=== PATIENT | male | born 2000 | race African-American/Black ===

== ENCOUNTER 2020-09-17 15:16 | Emergency (ER) | payer MEDICAID, SELFPAY ==
[2020-09-17 15:30] VITALS: BP 116/78; PULSE 80; RESP 18; TEMP 36.7; O2SAT 99; BMI 19.1
--- NOTE | 2020-09-17 15:40 | HMH.EDUTC ---
[facility] [place] Clinical Impression: Exposure to COVID-19 virus, Exposure to STD Disposition: Home, Self-Care Condition on Discharge: Good Instructions: Preventing the Spread of Coronavirus Discharge Instructions Additional Instructions: Drink plenty of fluids. Take tylenol for pain or fever. Follow up with your regular doctor. GO TO THE ER FOR ANY WORSENING SYMPTOMS Referrals: PCP,No [Primary Care Provider] - Time of Disposition: 15:49 Medical Decision Making - Medical Records Medical records reviewed: No: I reviewed the patient's medical records. - Abiodun Inquiry Pt receiving controlled substance: No Vital Signs: 09/17/20 15:30 09/17/20 15:54 Temperature 98.1 F 98.1 F Temperature Source Oral Oral Pulse Rate 80 Pulse Rate [Radial] 80 Respiratory Rate 18 18 Blood Pressure 116/78 Blood Pressure [Right Arm] 116/78 Blood Pressure Mean [Right Arm] 90 Blood Pressure Source Automatic Cuff Blood Pressure Source [Right Arm] Automatic Cuff Blood Pressure Position Sitting Blood Pressure Position [Right Arm] Sitting 02 Sat by Pulse Oximetry 99 Oxygen Delivery Method Room Air Room Air [facility] [place] - General Stated complaint: request covid test and STD test Time Seen by Provider: 09/17/20 15:40 Mode of Arrival: Ambulatory Source of Information: Patient Limitations: No Limitations Description of Symptoms (Recalled from Triage Doc. by RN): WANTS COVID TEST AND STD TESTING. HEENT Symptoms (Recalled from RN notes): No Resp Symptoms (Recalled from RN notes): No Skin Symptoms (Recalled from RN notes): No MS Symptoms (Recalled from RN notes): No Functional Status (Recalled from RN notes): WNL - History of Present Illness Provider Complaint: He thinks that he was exposed to covid thru a friend. He denies any symptoms at this time. His exposure would have happened about 3 to 4 days ago. He is also concerned about having and stds. He denies any symptoms of these also. - Related Data Previous Rx's Medication Instructions Recorded Oseltamivir Phosphate [Tamiflu 75 mg PO BID #10 cap 11/17/19 75mg Capsule] Allergies Allergy/AdvReac Type Severity Reaction Status Date / Time No Known Allergies Allergy Verified 12/25/18 12:39 - Worker's Comp Is this a Worker's Comp case?: No [facility] History - Hepatitis A Screen Drug use history?: No High risk sexual behaviors?: No History of sexually transmitted infection?: No Currently employed?: No Childcare worker?: No Do you have indoor plumbing?: Yes Do you have electricity?: Yes Attestation statement:: This patient has been screened for Hepatitis A risk factors. I have reviewed the patient's past medical history: Yes Medical History: Denies:: Diabetes Mellitus Type 1, Diabetes Mellitus Type 2 - Social History Alcohol Intake: never Occupational Status: other ROS Obtained: Yes All systems reviewed & no additional complaints - Constitutional Constitutional: Denies chills, Denies fever(s) - Eyes Eyes: Reports system reviewed and no additional complaints, except as docu - ENT Ears, Nose, Mouth, and Throat: Reports system reviewed and no additional complaints, except as docu - Cardiovascular Cardiovascular: Reports system reviewed and no additional complaints, except as docu - Respiratory Respiratory: Yes system reviewed and no additional complaints, except as docu Physical Exam - General General appearance: alert, in no apparent distress - Head Head exam: atraumatic, normocephalic, normal inspection - Eye Eye exam: Present: normal appearance, PERRL, EOMI - ENT ENT exam: Present: normal exam, normal oropharynx, mucous membranes moist, TM's normal bilaterally, normal external ear exam - Neck Neck exam: Present: normal inspection, full ROM, trachea midline. Absent: meningismus, lymphadenopathy - Chest Chest inspection: Present: normal inspection, symmetric chest wall rise. Absent: tenderness - Respira
[2020-09-17 15:54] VITALS: BP 116/78; PULSE 80; RESP 18; TEMP 36.7; O2SAT 99
[2020-09-21 08:40] LABS: Neisseria gonorrhoeae, NAA Negative (Negative)
== END 2020-09-17 15:56 | disposition home or self-care (01) ==
PROVIDERS: Emergency Provider Nurse Practitioner Family
DX: Z20.828 Contact with and (suspected) exposure to other viral communicable diseases (principal); Z20.2 Contact with and (suspected) exposure to infections with a predominantly sexual mode of transmission
CPT/HCPCS: 87491; 87591; 99202; U0003

== ENCOUNTER 2022-03-06 12:21 | Emergency (ER) | payer MEDICAID, SELFPAY ==
[2022-03-06 13:25] VITALS: BP 109/63; PULSE 71; RESP 16; TEMP 36.6; O2SAT 100; BMI 18.4
[2022-03-06 13:31] LABS: UTC Influenza A Antigen Positive (Negative)
[2022-03-06 13:32] LABS: UTC Influenza B Antigen Negative (Negative)
--- NOTE | 2022-03-06 13:51 | HMH.EDUTC ---
[facility] [place]ression: Influenza A Disposition: Home, Self-Care Condition on Discharge: Good Instructions: Influenza, DI for Influenza -- Adult Additional Instructions: Drink plenty of fluids. Take tylenol or ibuprofen for pain or fever. Take the medications as directed. Follow up with your regular doctor. GO TO THE ER FOR ANY WORSENING SYMPTOMS Prescriptions: Ondansetron [Zofran 4mg ODT] 4 mg PO Q8HP PRN #12 tab PRN Reason: Nausea Transmission Status: Received by [id number] Oseltamivir Phosphate [Tamiflu 75mg Capsule] 75 mg PO BID #10 cap Transmission Status: Received by [id number] Referrals: Provider,Referral, MD [Primary Care Provider] - Forms: Work/School Release Time of Disposition: 13:56 Medical Decision Making - Medical Records Medical records reviewed: No: I reviewed the patient's medical records. - Abiodun Inquiry Pt receiving controlled substance: No Vital Signs: 03/06/22 13:25 03/06/22 14:05 Temperature 97.8 F 97.8 F Temperature Source Oral Pulse Rate 71 Pulse Rate [Left] 71 Respiratory Rate 16 16 Blood Pressure 109/63 L Blood Pressure [Right Arm] 109/63 L Blood Pressure Mean [Right Arm] 78 02 Sat by Pulse Oximetry 100 - Lab Data Lab results reviewed: Yes: I reviewed the patient's lab results. Lab Results 03/06/22 13:13: Influenza Type A Ag Positive A, Influenza Type B Ag Negative [facility] [place] - General Stated complaint: bodyaches, SOA, chills, FOX Time Seen by Provider: 03/06/22 13:52 Mode of Arrival: Ambulatory Source of Information: Patient Limitations: No Limitations Description of Symptoms (Recalled from Triage Doc. by RN): pt c/o a FOX, fever, body aches and nasal drainage x2 days. HEENT Symptoms (Recalled from RN notes): Yes Resp Symptoms (Recalled from RN notes): No Skin Symptoms (Recalled from RN notes): No MS Symptoms (Recalled from RN notes): No Functional Status (Recalled from RN notes): wnl - History of Present Illness Provider Complaint: He c/o 2 days of body aches, chills, low grade fever, - Related Data Previous Rx's Medication Instructions Recorded Oseltamivir Phosphate [Tamiflu 75 mg PO BID #10 cap 11/17/19 75mg Capsule] Ondansetron [Zofran 4mg ODT] 4 mg PO Q8HP PRN #12 tab 03/06/22 Oseltamivir Phosphate [Tamiflu 75 mg PO BID #10 cap 03/06/22 75mg Capsule] Allergies Allergy/AdvReac Type Severity Reaction Status Date / Time No Known Allergies Allergy Verified 12/25/18 12:39 - Worker's Comp Is this a Worker's Comp case?: No [facility] History - Hepatitis A Screen Drug use history?: No High risk sexual behaviors?: No History of sexually transmitted infection?: No Currently employed?: No Childcare worker?: No Do you have indoor plumbing?: Yes Do you have electricity?: Yes Attestation statement:: This patient has been screened for Hepatitis A risk factors. I have reviewed the patient's past medical history: Yes Medical History: Denies:: Diabetes Mellitus Type 1, Diabetes Mellitus Type 2 - Social History Alcohol Intake: never Occupational Status: other ROS Obtained: Yes All systems reviewed & no additional complaints - Constitutional Constitutional: Reports as per HPI - Eyes Eyes: Denies eye discharge - ENT Ears, Nose, Mouth, and Throat: Reports as per HPI - Cardiovascular Cardiovascular: Denies chest pain - Respiratory Respiratory: Denies chest congestion, Reports cough, Denies dyspnea, Denies stridor, Denies wheezing - Gastrointestinal Gastrointestingal: Reports: nausea. Denies: abdominal pain, diarrhea, vomiting - Musculoskeletal Musculoskeletal: Denies joint pain - Integumentary/Breasts Skin/Breast: Denies rash Physical Exam - General General appearance: alert, in no apparent distress - Head Head exam: atraumatic, normocephalic, normal inspection - Eye Eye exam: Present: normal appearance, PERRL, EOMI - ENT
[2022-03-06 14:05] VITALS: BP 109/63; PULSE 71; RESP 16; TEMP 36.6
== END 2022-03-06 14:09 | disposition home or self-care (01) ==
LOC: ER 12:29 → UTC 12:30
PROVIDERS: Emergency Provider Nurse Practitioner Family
DX: J10.1 Influenza due to other identified influenza virus with other respiratory manifestations (principal)
CPT/HCPCS: 87804; 99213; G0463

== ENCOUNTER 2022-08-16 09:00 | Emergency (ER) | payer MEDICAID, SELFPAY ==
[2022-08-16 09:01] VITALS: BP 124/75; PULSE 84; RESP 16; TEMP 36.7; O2SAT 100; BMI 19.1
--- NOTE | 2022-08-16 09:46 | HMH.EDEYEP ---
Discharge Plan Disposition Patient Disposition: Home, Self-Care Condition: Good Prescriptions Prescriptions: New erythromycin 5 mg/gram (0.5 %) ointment 1 applic ophthalmic (eye) QID 5 Days Qty: 3.5 0RF No Action oseltamivir 75 MG capsule 75 mg PO BID Qty: 10 0RF oseltamivir 75 MG capsule 75 mg PO BID Qty: 10 0RF ondansetron 4 MG tablet,disintegrating 4 mg PO Q8HP PRN (Reason: Nausea) Qty: 12 0RF Referrals Follow up/Referrals: Provider,Referral, MD [Primary Care Provider] - See instructions Clinical Impressions Clinical Impression: Bacterial conjunctivitis Instructions Patient Instructions: DI for Conjunctivitis Discharge ED Provider: Ezequiel Boyle Eye Problem HPI General Chief complaint: Eye Problems Stated complaint: Possible sinus infection, LT eye inflammation Time Seen by Provider: 08/16/22 09:30 Mode of Arrival: Ambulatory Source of Information: Patient Limitations: No Limitations Description of Symptoms (Recalled from ER Triage Doc. by RN): c/o left eye swelling/red drainage since this am History of Present Illness HPI Narrative: This is a 21-year-old male presented to the emergency department with some left-sided eye irritation. The patient states that he woke up this morning his left eye was crusted shut. He had some yellow discharge. Feels like his eye is puffy. He has had some irritation of the eye as well. Denies any trauma. Is not having any change in vision. Does not wear contacts. I have any fevers or chills. No headache or change in vision. No focal weakness. No chest pain or shortness of breath. Abdominal pain or vomiting. Related Data Previous Rx's Medication Instructions Recorded oseltamivir 75 mg capsule 75 mg PO BID #10 caps 11/17/19 ondansetron 4 mg disintegrating 4 mg PO Q8HP PRN Nausea #12 tabs 03/06/22 tablet oseltamivir 75 mg capsule 75 mg PO BID #10 caps 03/06/22 erythromycin 5 mg/gram (0.5 %) eye 1 applic ophthalmic (eye) QID 5 08/16/22 ointment days #3.5 grams Allergies Allergy/AdvReac Type Severity Reaction Status Date / Time No Known Allergies Allergy Verified 12/25/18 12:39 PFSH PFSH Social History Smoking Status: Never smoker alcohol intake: never current occupational status: other Travel in the last 8 weeks: None ROS Obtained: Yes All systems reviewed & no additional complaints except as documented Constitutional Constitutional: Denies chills, Denies fever(s) and Denies headache(s) Eyes Eyes: Reports eye discharge ENT Ears, Nose, Mouth, and Throat: Denies headache(s) Cardiovascular Cardiovascular: Denies chest pain and Denies dyspnea Respiratory Respiratory: Denies dyspnea Neurologic Neurologic: Denies headache(s) Physical Exam General General appearance: alert and in no apparent distress Eye Eye exam: Present PERRL, EOMI and conjunctival redness (left) Expanded Eye Exam Comment: There is some minimal edema in the upper and lower eyelid. There is no erythema or fluctuance. No evidence of septal or preseptal cellulitis. Visual acuity intact. Respiratory Respiratory exam: Present normal lung sounds bilaterally; Absent respiratory distress Cardiovascular Cardiovascular exam: Present regular rate and normal rhythm Neurological Exam Neurological exam: Present alert, oriented X3, CN II-XII intact and normal gait Medical Decision Making Medical Records Medical records reviewed: Yes I reviewed the patient's medical records. Abiodun Inquiry Pt receiving controlled substance: No Vital Signs: 08/16/22 09:01 Temperature 98.1 F Temperature Source Oral Pulse Rate [Left Radial] 84 Respiratory Rate 16 Blood Pressure [Right Arm] 124/75 Blood Pressure Mean [Right Arm] 91 Blood Pressure Source [Right Arm] Automatic Cuff Blood Pressure Position [Right Arm] Sitting 02 Sat by Pulse Oximetry 100 Oxygen Delivery Method Room Air Orders (Tests/Meds
[2022-08-16 09:55] VITALS: BP 124/75; PULSE 84; RESP 18; TEMP 36.7; O2SAT 100
[2022-08-16 09:58] VITALS: BP 124/75; PULSE 84; RESP 16; TEMP 36.7; O2SAT 100
== END 2022-08-16 10:00 | disposition home or self-care (01) ==
PROVIDERS: Emergency Provider Emergency Medicine
DX: H10.89 Other conjunctivitis (principal)
CPT/HCPCS: 99283

== ENCOUNTER 2022-09-14 17:35 | Emergency (ER) | payer MEDICAID, SELFPAY ==
--- NOTE | 2022-09-14 17:55 | EXP.UTC ---
Discharge Plan Disposition Patient Disposition: Home, Self-Care Condition: Good Prescriptions Prescriptions: New [id number] [Bromfed DM] 2-30-10 mg/5 mL Syrup 5 ml PO Q6H PRN (Reason: Cough) Qty: 240 0RF ibuprofen [IBU] 800 mg tablet 800 mg PO Q8HP PRN (Reason: Moderate Pain) Qty: 30 0RF No Action oseltamivir 75 MG capsule 75 mg PO BID Qty: 10 0RF erythromycin 5 mg/gram (0.5 %) ointment 1 applic ophthalmic (eye) QID 5 Days Qty: 3.5 0RF oseltamivir 75 MG capsule 75 mg PO BID Qty: 10 0RF ondansetron 4 MG tablet,disintegrating 4 mg PO Q8HP PRN (Reason: Nausea) Qty: 12 0RF Referrals Follow up/Referrals: Provider,Referral, MD [Primary Care Provider] - See instructions Activity Restrictions/Add. Instructions Additional Instructions/Restrictions: Drink plenty of fluids. Take tylenol or ibuprofen for pain or fever. Take the medications as directed. Follow up with your regular doctor. GO TO THE ER FOR ANY WORSENING SYMPTOMS Quarantine until you know the results of your covid-19 test. Notify your school or workplace of your results and follow their instructions regarding return to work/school. Clinical Impressions Clinical Impression: Viral syndrome Stand Alone Forms Stand Alone Forms: Work/School Release Instructions Patient Instructions: DI for Viral Syndrome Discharge ED Provider: Js Espinosa [facility] General Stated complaint: COUGH, CONGESTION Time Seen by Provider: 09/14/22 17:54 History of Present Illness Provider Complaint: He states that for the past 5 days he has had body aches, chills, headache and he has felt bad. He denies any chest congestion or cough. He does have a scratchy sore throat. Related Data Previous Rx's Medication Instructions Recorded oseltamivir 75 mg capsule 75 mg PO BID #10 caps 11/17/19 ondansetron 4 mg disintegrating 4 mg PO Q8HP PRN Nausea #12 tabs 03/06/22 tablet oseltamivir 75 mg capsule 75 mg PO BID #10 caps 03/06/22 erythromycin 5 mg/gram (0.5 %) eye 1 applic ophthalmic (eye) QID 5 08/16/22 ointment days #3.5 grams [id number]-[id number] 5 ml PO Q6H PRN Cough #240 mL 09/14/22 2 mg-30 mg-10 mg/5 mL oral syrup (Bromfed DM) ibuprofen 800 mg tablet (IBU) 800 mg PO Q8HP PRN Moderate Pain 09/14/22 #30 tabs Allergies Allergy/AdvReac Type Severity Reaction Status Date / Time No Known Allergies Allergy Verified 12/25/18 12:39 PFSH PFSH Social History Smoking Status: Never smoker alcohol intake: never current occupational status: other Travel in the last 8 weeks: None ROS Obtained: Yes All systems reviewed & no additional complaints except as documented Constitutional Constitutional: Reports chills and Reports fever(s) Eyes Eyes: Denies eye discharge ENT Ears, Nose, Mouth, and Throat: Reports as per HPI Cardiovascular Cardiovascular: Denies chest pain Respiratory Respiratory: Denies chest congestion and Reports cough Gastrointestinal Gastrointestingal: Reports nausea; Denies abdominal pain, constipation, cramping, diarrhea or vomiting Musculoskeletal Musculoskeletal: Denies arthralgias Integumentary/Breasts Skin/Breast: Denies rash Neurologic Neurologic: Denies paresthesias Physical Exam General General appearance: alert and in no apparent distress Head Head exam: atraumatic, normocephalic and normal inspection Eye Eye exam: Present normal appearance, PERRL and EOMI ENT ENT exam: Present normal exam, normal oropharynx, mucous membranes moist, TM's normal bilaterally and normal external ear exam Neck Neck exam: Present normal inspection, full ROM and trachea midline; Absent meningismus or lymphadenopathy Chest Chest inspection: Present normal inspection and symmetric chest wall rise; Absent tenderness Respiratory Respiratory exam: Present normal lung sounds bilaterally; Absent respiratory distress Car
[2022-09-14 18:04] VITALS: BP 146/105; PULSE 96; RESP 18; TEMP 37; O2SAT 99; BMI 18.4
[2022-09-14 18:08] LABS: Adenovirus,PCR Not Detected (NotDetected); Bordetella Pertussis Not Detected (NotDetected); Chlamydophila Pneumoniae, PCR Not Detected (NotDetected); Coronavirus 19, PCR Not Detected (NotDetected); Coronavirus 229E Not Detected (NotDetected); Coronavirus NL63 Not Detected (NotDetected); Coronavirus OC43 Not Detected (NotDetected); Coronovirus HKU1,PCR Not Detected (NotDetected); Human Metapneumovirus Not Detected (NotDetected); Influenza A, PCR Not Detected (NotDetected); Influenza AH1, 2009 Not Detected (NotDetected); Influenza AH1, PCR Not Detected (NotDetected); Influenza AH3,PCR Not Detected (NotDetected); Influenza B, PCR Not Detected (NotDetected); Mycoplasma Pneumoniae, PCR Not Detected (NotDetected); Parainfluenza 1, PCR Not Detected (NotDetected); Parainfluenza 2, PCR Not Detected (NotDetected); Parainfluenza 3, PCR Not Detected (NotDetected); Parainfluenza 4, PCR Not Detected (NotDetected); Respiratory Syncytial Virus Not Detected (NotDetected)
[2022-09-14 18:14] VITALS: BP 140/89; PULSE 95; RESP 18; TEMP 36.6; O2SAT 99
[2022-09-15 02:25] LABS: Rhinovirus/Enterovirus Detected (NotDetected)
== END 2022-09-14 18:58 | disposition home or self-care (01) ==
PROVIDERS: Emergency Provider Nurse Practitioner Family
DX: R05.9 Cough, unspecified (principal); R09.89 Other specified symptoms and signs involving the circulatory and respiratory systems; B34.9 Viral infection, unspecified
CPT/HCPCS: 87581; 87632; 87798; 99212; C9803; G0463; U0003; U0005